=== PATIENT | female | born 1990 | race Caucasian/White ===

== ENCOUNTER 2017-06-03 18:22 | Emergency (ER) | payer BC ==
[2017-06-03 18:44] VITALS: BP 103/73
[2017-06-03] MEDS ORDERED: Tetan/Diph/Pertus SYR(Tdap)* 0.5 ML SYR(BOOSTRIX) use SYR IM ONE (18:48)
[2017-06-03] MEDS ORDERED: Cephalexin CAP* 500 MG PO ONE (19:01)
[2017-06-03] MEDS ORDERED: Silver Sulfadiazine 1%* 20 GM TOPICAL ONE (19:02)
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
== END 2017-06-03 19:15 | disposition home or self-care (01) ==
LOC: UCEAST 18:22
DX: T23.221A Burn of second degree of single right finger (nail) except thumb, initial encounter (principal); F17.200 Nicotine dependence, unspecified, uncomplicated; X08.8XXA Exposure to other specified smoke, fire and flames, initial encounter; Y92.9 Unspecified place or not applicable; L03.90 Cellulitis, unspecified
CPT/HCPCS: 90471; 90715; 99203; A9270-GY; G0463